=== PATIENT | female | born 1975 | race African-American/Black ===

== ENCOUNTER 2019-02-24 11:21 | Emergency (ER) | payer MEDICAID ==
[~2019-02-24] VITALS: Ht 177.8 cm; Wt 108.0 kg
--- NOTE | 2019-02-24 11:42 | NUR ---
ED Nurse Note: PT WALKED IN TO ER TODAY FROM HOME. AOX4. PT C/O PERSISTENT NONPRODUCTIVE COUGH X 2 WEEKS. PT DENIES FEVER, BODYACHES, NAUSEA OR VOMITING. PT AFEBRILE AT BEDSIDE: 98.4F. LUNG SOUNDS CLEAR IN ALL LOBES. NO SIGNS OF RESPIRATORY DISTRESS OR RETRACTIONS NOTED.
[2019-02-24 11:43] VITALS: BP 136/84
--- NOTE | 2019-02-24 12:36 | Emergency Room Report ---
History of Present Illness General Chief Complaint: Upper Respiratory Illness Source: Patient Present Illness HPI 2 weeks of upper respiratory infection. Initially was yellow phlegm but now it' s clear. She hears himself wheezing on occasion. Denies sore throat. No headache. No NVD, dysuria. No rashes. No joint pain, neck pain. Minimal PIZANO. Cough not keeping her awake at night. No chest pain. Had flu shot. History of asthma. H/O high cholesterol. Daughter with strep throat. Allergies: Coded Allergies: No Known Allergies (Unverified , 02/24/19) Patient History Past Medical History: see triage record Social History: Denies: smoking Social History Narrative . Now: No Reviewed Nursing Documentation: PMH: Agreed; PSxH: Agreed Nursing Documentation-PMH Past Medical History: No History, Except For Review of Systems All Other Systems: negative except mentioned in HPI Physical Exam Vital Signs Date Time Temp Pulse Resp B/P (MAP) Pulse Ox O2 Delivery O2 Flow Rate FiO2 02/24/19 11:29 98.2 78 20 144/90 97 Room Air Sp02 EP Interpretation: reviewed, normal General Appearance: well appearing, no apparent distress, GCS 15 Head: normocephalic, atraumatic Eyes: bilateral eye normal inspection, bilateral eye PERRL, bilateral eye EOMI ENT: hearing grossly normal, normal pharynx, no angioedema, normal voice, moist mucus membranes Neck: full range of motion, supple Respiratory: chest non-tender, lungs clear, normal breath sounds, no respiratory distress, speaking full sentences Cardiovascular #1: regular rate, rhythm, no edema Cardiovascular #2: 2+ radial (R) Gastrointestinal: normal inspection Musculoskeletal: back normal, digits/nails normal, gait/station normal, no calf tenderness Neurologic: alert, normal gait, grossly normal Psychiatric: mood/affect normal Skin: no rash Medical Decision Making Diagnostic Impression: Primary Impression: Upper respiratory infection Qualified Codes: J06.9 - Acute upper respiratory infection, unspecified ER Course Patient presents with URI for 2 weeks. Phlegm is clearing. Occasional wheezing. No fevers. DDX: viral URI, asthma. No evidence of bacterial infection. Symptomatic treatment indicated. Patient stable for outpatient observation and treatment. Last Vital Signs Date Time Temp Pulse Resp B/P (MAP) Pulse Ox O2 Delivery O2 Flow Rate FiO2 02/24/19 12:40 98.3 72 17 132/82 98 Room Air Status: unchanged Disposition: HOME, SELF-CARE Condition: Stable Scripts Prednisone* (PREDNISONE*) 20 Mg Tablet 40 MG ORAL DAILY, #10 TAB Prov: Francesco Headley MD 02/24/19 Dextromethorphan Hb/Doxylamine (ROBITUSSIN NIGHTTIME COUGH DM) 237 Ml Liquid 5 ML PO Q6HR, #90 ML Prov: Francesco Headley MD 02/24/19 Albuterol Sulfate* (ALBUTEROL SULFATE MDI*) 8.5 Gm Hfa.aer.ad 2 PUFF INH Q6H, #1 EA 0 Refills Prov: Francesco Headley MD 02/24/19 Francesco Headley MD Feb 24, 2019 12:36
[2019-02-24] MEDS ORDERED: PREDNISONE20 MG ORAL (12:38)
[2019-02-24] MEDS ORDERED: ROBITUSSIN NIG237 ML PO (12:38)
[2019-02-24] MEDS ORDERED: ALBUTEROL SULF8.5 GM INH (12:38)
--- NOTE | 2019-02-24 12:41 | NUR ---
ED Nurse Note: PT SITTING PEACEFULLY IN BED IN NAD. AOX4. PRESCRIPTIONS AND DISCHARGE PAPERWORK EXPLAINED TO PT. PT VERBALIZES UNDERSTANDING AND ALL QUESTIONS ANSWERED. PRESCRIPTIONS AND DISCHARGE PAPERWORK GIVEN TO PT AND ID WRISTBAND REMOVED. PT WALKED OUT OF ER WITH STEADY GAIT AND ALL BELONGINGS.
== END 2019-02-24 12:43 | disposition home or self-care (01) ==
LOC: EMR 12:02
DX: J06.9 Acute upper respiratory infection, unspecified (principal)
CPT/HCPCS: 99282

== ENCOUNTER 2020-06-26 17:30 | Emergency (ER) | payer MEDICAID ==
[~2020-06-26] VITALS: Ht 175.3 cm; Wt 99.8 kg
[~2020-06-26 17:30] MED LIST: ALBUTEROL SULF8.5 GM INH; PREDNISONE20 MG ORAL; ROBITUSSIN NIG237 ML PO
[2020-06-26 17:40] VITALS: BP 129/71
--- NOTE | 2020-06-26 17:53 | Emergency Room Report ---
History of Present Illness General Chief Complaint: Skin Rash/Abscess Source: Patient Present Illness HPI 45-year-old female with no signal past medical history here complaining of a painful rash left knee x2 days. Reports that she woke up with 2 days ago and did not see any specific insect. Cellulitic changes noted on the left medial side of knee. Patient has range of motion of the area he reports it is painful upon palpation of the area. Rates the pain 5 out of 10 without radiation at this time. Denies any tingling numbness. Denies any fever and chills, nausea vomiting, chest pain shortness of breath. Denies rash anywhere else. No calf tenderness noted. Denies . Has not taken medication for symptom relief. Allergies: Coded Allergies: No Known Allergies (Unverified , 02/24/19) COVID-19 Screening Contact w/high risk pt: No Experienced COVID-19 symptoms?: No COVID-19 Testing performed REED MAKER: No Patient History Past Medical History: see triage record Past Surgical History: none Pertinent Family History: none Last Menstrual Period: last month Now: No Immunizations: UTD Reviewed Nursing Documentation: PMH: Agreed; PSxH: Agreed Nursing Documentation-PMH Past Medical History: No History, Except For Review of Systems All Other Systems: negative except mentioned in HPI Physical Exam Vital Signs Date Time Temp Pulse Resp B/P (MAP) Pulse Ox O2 Delivery O2 Flow Rate FiO2 06/26/20 17:34 98.2 98 16 129/71 (90) 97 Room Air Sp02 EP Interpretation: reviewed, normal General Appearance: no apparent distress, alert, GCS 15, non-toxic Head: normocephalic, atraumatic Eyes: bilateral eye normal inspection, bilateral eye PERRL ENT: hearing grossly normal, normal pharynx, no angioedema, normal voice Neck: full range of motion, supple/symm/no masses Respiratory: chest non-tender, lungs clear, normal breath sounds, no rhonchi, speaking full sentences Cardiovascular #1: regular rate, rhythm, no edema, no murmur Cardiovascular #2: 2+ dorsalis pedis (R), 2+ dorsalis pedis (L) Gastrointestinal: normal bowel sounds, non tender, soft, non-distended, no guarding, no rebound Rectal: deferred Musculoskeletal: back normal, no calf tenderness, non-tender, swelling - Cellulitis of left medial knee secondary to insect Neurologic: alert, motor strength/tone normal, oriented x3, sensory intact, responsive, speech normal Psychiatric: judgement/insight normal, memory normal, mood/affect normal, no suicidal/homicidal ideation Skin: rash - Cellulitis of left medial knee secondary to insect bite Lymphatic: no adenopathy Medical Decision Making ARMANDO Attestation All my diagnosis and treatment plans were reviewed ad discussed with my supervising physician Dr. Pascal Diagnostic Impression: Primary Impression: Cellulitis of leg Additional Impression: Insect bite ER Course 45-year-old female with no signal past medical history here complaining of a painful rash left knee x2 days. Reports that she woke up with 2 days ago and did not see any specific insect. Cellulitic changes noted on the left medial side of knee. Patient has range of motion of the area he reports it is painful upon palpation of the area. Rates the pain 5 out of 10 without radiation at this time. Denies any tingling numbness. Denies any fever and chills, nausea vomiting, chest pain shortness of breath. Denies rash anywhere else. No calf tenderness noted. Denies . Has not taken medication for symptom relief. Ddx considered but are not limited to : Cellulitis, DVT, superficial infection, abscess Vital signs: are WNL, pt. is afebrile H&PE are most consistent with:cellulitis left knee secondary to insect bite ORDERS: Keflex, Motrin ED INTERVENTIONS: None required at this time. DISCHARGE: At this time pt. is stable for d/c to home. Will provide printed patient care instructions, and any necessary prescriptions. Care plan and follow up instructions have been discussed with the patient prior to discharge. Medication as directed, follow primary care provider, worsening symptoms return to the emergency room Last Vital Signs Date Time Temp Pulse Resp B/P (MAP) Pulse Ox O2 Delivery O2 Flow Rate FiO2 06/26/20 17:34 98.2 98 16 129/71 (90) 97 Room Air Disposition: HOME, SELF-CARE Condition: Stable Scripts Ibuprofen* (MOTRIN*) 600 Mg Tablet 600 MG ORAL THREE TIMES A DAY, #30 TAB Prov: Narendra Redmond 06/26/20 Cephalexin* (KEFLEX*) 500 Mg Capsule 500 MG ORAL EVERY 6 HOURS for 7 Days, #28 CAP Prov: Narendra Redmond 06/26/20 Patient Instructions: Cellulitis, [id number], Spider Bite Additional Instructions: take medication as directed, follow-up with your primary care provider, if worsening symptoms return to the emergency room Narendra Redmond Jun 26, 2020 17:53
[2020-06-26] MEDS ORDERED: IBUPROFEN600 M1 ORAL (17:54)
[2020-06-26] MEDS ORDERED: CEPHALEXIN500 MG ORAL (17:54)
[2020-06-26 18:00] VITALS: BP 129/71
== END 2020-06-26 18:00 | disposition home or self-care (01) ==
LOC: EMR 17:49
DX: L03.116 Cellulitis of left lower limb (principal); S80.262A Insect bite (nonvenomous), left knee, initial encounter; W57.XXXA Bitten or stung by nonvenomous insect and other nonvenomous arthropods, initial encounter; Y92.9 Unspecified place or not applicable
CPT/HCPCS: 99282